=== PATIENT | male | born 1995 | race Caucasian/White ===

== ENCOUNTER 2023-05-20 19:41 | Inpatient (IN) | payer OTHER, SELFPAY ==
[2023-05-20 19:55] VITALS: BP 143/87; PULSE 85; RESP 18; TEMP 36.6; O2SAT 96
[2023-05-20] MEDS: Mirtazapine 15 MG TABLET PO (22:58)
[2023-05-20] MEDS: Insulin Glargine,Hum.rec.anlog 100 UNIT/ML 10 ML VIAL 26 UNIT SUBCUT ×2 (22:59→23:11)
[2023-05-20] MEDS: Atorvastatin Calcium 40 MG TABLET PO (22:59)
[2023-05-20] MEDS: cloNIDine HCL 0.2 MG TABLET PO (23:20)
[2023-05-20 23:29] LABS: Glucose, Whole Blood 256 mg/dL (60-115)
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
[2023-05-21 08:00] VITALS: BP 106/57; PULSE 54; RESP 16; TEMP 36.4; O2SAT 97
[2023-05-21 08:23] LABS: Estimated Average Glucose 180 mg/dL; Hemoglobin A1c % 7.9 % (<6.0)
[2023-05-21 08:25] LABS: Alanine Aminotransferase 25 U/L (0-40); Albumin Level 3.8 g/dL (3.5-5.0); Alkaline Phosphatase 123 U/L (39-117); Anion Gap 12 (12-20); Aspartate Amino Transferase 20 U/L (5-37); Bilirubin Total 0.8 mg/dL (0.0-1.0); Blood Urea Nitrogen 19 mg/dL (9-16); Calcium 8.9 mg/dL (8.4-10.2); Carbon Dioxide 26 mmol/L (22-29); Chloride 105 mmol/L (96-108); Cholesterol 121 mg/dL (<200); Creatinine Clr Calc Pharmacy 150.1; Estimated Glomerular Filt Rate > 60; Glucose Fasting 291 mg/dL (60-99); HDL Cholesterol 34 mg/dL (>40); LDL Cholesterol Calculated 75 mg/dL (<100); Potassium 4.1 mmol/L (3.3-5.1); Sodium 139 mmol/L (135-145); Total Protein 6.3 g/dL (6.5-8.0); Triglycerides 61 mg/dL (<150)
[2023-05-21 08:33] LABS: Glucose, Whole Blood 262 mg/dL (60-115)
[2023-05-21 08:39] LABS: Free T4 (Free Thyroxine) 1.03 ng/dL (0.71-1.85); Thyroid Stimulating Hormone 4.33 uIU/mL (0.32-4.0)
[2023-05-21] MEDS: Insulin Glargine,Hum.rec.anlog 100 UNIT/ML 10 ML VIAL 55 UNIT SUBCUT (09:24)
[2023-05-21] MEDS: Insulin Lispro 100 UNIT/ML 3 ML VIAL SUBCUT ×3 (09:26→20:55)
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
[2023-05-21] MEDS: Nicotine 21 MG PATCH.TD24 TRANSDERMA (11:48)
[2023-05-21] MEDS: Nicotine Polacrilex 2 MG GUM BUCCAL ×3 (11:49→20:58)
[2023-05-21 11:51] LABS: Glucose, Whole Blood 167 mg/dL (60-115)
[2023-05-21 13:21] LABS: Folate 9.9 ng/mL (> or = 4.0); Vitamin B12 459 pg/mL (200-900)
[2023-05-21 16:45] VITALS: BP 128/65; PULSE 73; RESP 16; TEMP 36.9; O2SAT 98
[2023-05-21 17:38] LABS: Glucose, Whole Blood 73 mg/dL (60-115)
[2023-05-21] MEDS: cloNIDine HCL 0.2 MG TABLET PO (20:35)
[2023-05-21] MEDS: Atorvastatin Calcium 40 MG TABLET PO (20:35)
[2023-05-21] MEDS: Mirtazapine 15 MG TABLET PO (20:35)
[2023-05-21 20:47] LABS: Glucose, Whole Blood 162 mg/dL (60-115)
[2023-05-21] MEDS: Insulin Glargine,Hum.rec.anlog 100 UNIT/ML 10 ML VIAL 26 UNIT SUBCUT (20:54)
[2023-05-22 08:24] LABS: Glucose, Whole Blood 210 mg/dL (60-115)
[2023-05-22] MEDS: Insulin Glargine,Hum.rec.anlog 100 UNIT/ML 10 ML VIAL 55 UNIT SUBCUT (08:45)
[2023-05-22] MEDS: Nicotine 21 MG PATCH.TD24 TRANSDERMA (08:46)
[2023-05-22] MEDS: Insulin Lispro 100 UNIT/ML 3 ML VIAL SUBCUT ×4 (08:50→20:33)
[2023-05-22 12:07] LABS: Glucose, Whole Blood 419 mg/dL (60-115)
--- NOTE | 2023-05-22 12:46 | HO.PSYCHPN ---
Subjective Subjective Date of Service: 05/22/23 Reason For Visit: Bipolar D/O Current Episode Depressed Severe Etc Subjective Notes: Conditional Voluntary Interim History: 27yo WM reports he has been in touch with family and friends since being here- continues to deny any problems and also denies any drug/alcohol cravings- BS was 400+ today and did take sliding scale insulin. He continues to expect dc and plan to get his insulin equipment from father. Weekday providers will likely need more collateral information to make sense of his story- and create dc plan- but currently do not see any indication to treat him with any medication change- Medication Compliance: Yes Side effects from medications: No Attending Groups: No Review of Systems Acute medical concerns: Yes ongoing diabetes Medical Review of Systems: unchanged Mental Status Exam Mental Status Exam Patient Appearance: Well Grooomed and Appropriate Patient Orientation: Person, Place, Time and Situation Level of Consciousness: Awake and Appropriate Patient Behavior: Appropriate and Cooperative Mood Description: Calm Affect Description: Calm Patient Cognition Impaired: No Ability to Follow Directions: Good Speech Pattern: Clear Memory Description: Intact Hallucinations: None Delusions: Not Present Thought Process: Intact and Goal Oriented Judgement: Fair Diagnostics Vital Signs (24Hr): Vital Signs - 24 hr 05/21/23 16:45 Temperature 98.5 F Pulse Rate 73 Respiratory Rate 16 Blood Pressure 128/65 Pulse Oximetry 98 Oxygen Delivery Method Room Air BMI result Body Mass Index 30.0 Labs 05/21/23 07:40 Labs: Laboratory Results - last 48 hr 05/20/23 05/21/23 05/21/23 23:15 07:40 08:18 Sodium 139 Potassium 4.1 Chloride 105 Carbon Dioxide 26 Anion Gap 12 BUN 19 H Creatinine 0.87 Estim Creat Clear Calc 150.1 Estimated GFR > 60 POC Glucose 256 H 262 H Fasting Glucose 291 H Estimat Average Glucose 180 Hemoglobin A1c % 7.9 H Calcium 8.9 Magnesium 2.0 Total Bilirubin 0.8 AST 20 ALT 25 Alkaline Phosphatase 123 H Total Protein 6.3 L Albumin 3.8 Triglycerides 61 Cholesterol 121 LDL Cholesterol, Calc 75 HDL Cholesterol 34 L Vitamin B12 459 Folate 9.9 TSH 4.33 H Free T4 1.03 05/21/23 05/21/23 05/21/23 11:46 17:35 20:43 Sodium Potassium Chloride Carbon Dioxide Anion Gap BUN Creatinine Estim Creat Clear Calc Estimated GFR POC Glucose 167 H 73 162 H Fasting Glucose Estimat Average Glucose Hemoglobin A1c % Calcium Magnesium Total Bilirubin AST ALT Alkaline Phosphatase Total Protein Albumin Triglycerides Cholesterol LDL Cholesterol, Calc HDL Cholesterol Vitamin B12 Folate TSH Free T4 05/22/23 05/22/23 08:20 12:03 Sodium Potassium Chloride Carbon Dioxide Anion Gap BUN Creatinine Estim Creat Clear Calc Estimated GFR POC Glucose 210 H 419 H* Fasting Glucose Estimat Average Glucose Hemoglobin A1c % Calcium Magnesium Total Bilirubin AST ALT Alkaline Phosphatase Total Protein Albumin Triglycerides Cholesterol LDL Cholesterol, Calc HDL Cholesterol Vitamin B12 Folate TSH Free T4 Medications Medications Current Medications Acetaminophen (Acetaminophen 325 Mg Tablet) 650 mg PO Q6H PRN PRN Reason: Headache/Pain Mild Scale (1-3) Al Hydroxide/Mg Hydroxide (Magnesium Hydrox/Alum Hydrox 30 Ml Oral.Susp) 30 ml PO Q6H PRN PRN Reason: Heartburn/Nausea Al Hydroxide/Mg Hydroxide (Magnesium Hydrox/Alum Hydrox 30 Ml Oral.Susp) 30 ml PO Q6H PRN PRN Reason: Heartburn/Nausea Atorvastatin Calcium (Atorvastatin Calcium 40 Mg Tablet) 40 mg PO BEDTIME [facility] Last Admin: 05/21/23 20:35 Dose: 40 mg Clonidine HCl (Clonidine Hcl 0.2 Mg Tablet) 0.2 mg PO BEDTIME [facility]; Protocol Last Admin: 05/21/23 20:35 Dose: 0.2 mg Hydroxyzine HCl (Hydroxyzine Hcl 25 Mg Tablet) 25 mg PO Q6H PRN PRN Reason: Anxiety Insulin Glargine (Insulin Glargine,Hum.Rec.Anlog 100 Unit/Ml 10 Ml Vial) 26 unit SUBCUT BEDTIME [facility] Last Admin: 05/21/23 20:54 Dose: 26 unit Insulin Glargine (Insulin Glargine,Hum.Rec.Anlog 100 Unit/Ml 10 Ml Vial) 55 unit SUBCUT DAILY [facility] Last Admin: 05/22/23 08:45 Dose: 55 unit Insulin Human Lispro (Insulin Lispro 100 Unit/Ml 3 Ml Vial) 0 unit SUBCUT QIDACHS [facility]; Protocol Last Admin: 05/22/23 08:50 Dose: 4 unit Magnesium Hydroxide (Milk Of Magnesia 30 Ml Oral.Susp) 30 ml PO DAILY PRN PRN Reason: Constipation Magnesium Hydroxide (Milk Of Magnesia 30 Ml Oral.Susp) 30 ml PO DAILY PRN PRN Reason: Constipation Mirtazapine (Mirtazapine 15 Mg Tablet) 15 mg PO BEDTIME [facility] Last Admin: 05/21/23 20:35 Dose: 15 mg Nicotine (Nicotine 21 Mg Patch.Td24) 21 mg TRANSDERMA DAILY [facility] Last Admin: 05/22/23 08:46 Dose: 21 mg Nicotine Polacrilex (Nicotine Polacrilex 2 Mg Gum) 2 mg BUCCAL Q1H PRN PRN Reason: Nicotine Cravings Last Admin: 05/21/23 20:58 Dose: 2 mg Trazodone HCl (Trazodone Hcl 50 Mg Tablet) 50 mg PO BEDTIME MRX1 PRN PRN Reason: Insomnia Allergies Allergies Allergy/AdvReac Type Severity Reaction Status Date / Time Sulfa (Sulfonamide Allergy Unknown Unknown Verified 05/20/23 15:37 Antibiotics) Assessment & Plan Assessment & Plan (1) Aggressive behavior, adult: Status: Acute Code(s): R46.89 - Other symptoms and signs involving appearance and behavior Plan seems like patient may have purposefully become aggressive to get sec 12 instead of 35 - and now seems to have no symptoms- Further exploration of actual recent substance use and what consequences will be of patient not going to mandatory detox treatment. Will need to get back pack from father to continue to live with his insulin supplies- or be furnished with new supplies- contacting his pcp might be a place to start or whomever has helped him manage his type 1 diabetes 05/22/23 no change- Guardian/Caregiver educated on: medical condition Informed Consent: understands Reason for continued inpatient stay Substantial Risk for: rapid decompensation Time Spent With Patient Time: Total time managing care of this patient today ____ minutes.
[2023-05-22] MEDS: Nicotine Polacrilex 2 MG GUM BUCCAL ×3 (12:57→20:33)
[2023-05-22 17:56] LABS: Glucose, Whole Blood 211 mg/dL (60-115)
[2023-05-22 19:25] VITALS: BP 120/71; PULSE 76; RESP 16; TEMP 36.6; O2SAT 97
[2023-05-22] MEDS: Atorvastatin Calcium 40 MG TABLET PO (20:25)
[2023-05-22] MEDS: cloNIDine HCL 0.2 MG TABLET PO (20:25)
[2023-05-22 20:26] VITALS: BP 135/73
[2023-05-22 20:32] LABS: Glucose, Whole Blood 336 mg/dL (60-115)
[2023-05-22] MEDS: Insulin Glargine,Hum.rec.anlog 100 UNIT/ML 10 ML VIAL 26 UNIT SUBCUT (20:34)
[2023-05-22] MEDS: Mirtazapine 15 MG TABLET PO (20:37)
[2023-05-23 08:00] VITALS: BP 108/57; PULSE 58; RESP 16; TEMP 36.8; O2SAT 97
[2023-05-23 08:23] LABS: Glucose, Whole Blood 105 mg/dL (60-115)
[2023-05-23] MEDS: Nicotine 21 MG PATCH.TD24 TRANSDERMA (08:40)
[2023-05-23] MEDS: Insulin Glargine,Hum.rec.anlog 100 UNIT/ML 10 ML VIAL 55 UNIT SUBCUT (08:40)
[2023-05-23 12:58] LABS: Glucose, Whole Blood 174 mg/dL (60-115)
[2023-05-23] MEDS: Nicotine Polacrilex 2 MG GUM BUCCAL ×4 (13:01→20:07)
[2023-05-23] MEDS: Insulin Lispro 100 UNIT/ML 3 ML VIAL SUBCUT ×3 (13:02→20:18)
--- NOTE | 2023-05-23 15:44 | P.PNPSI_ITS ---
Subjective Subjective Date of Service: 05/23/23 Reason For Visit: Bipolar D/O Current Episode Depressed Severe Etc Subjective Notes: 3 Day Interim History: Reviewed with Dr. Wren. Pt reports feeling good today; pt stated, I was on a Section 35 and freaked out to get out of it. I was in the same place I was last time and I didn't want to be there. I told them I was suicidal to get into the hospital . pt denies SI/HI/VH/AH. Pt reports he spoke to his pitching coach who was able to get him a bed at [facility]. Per administrator social welfare, Jodie Her, pt told pitching coach that he would not go to [facility]. Per social work, pt's father plans on going to file Section 35. Medication Compliance: Yes Side effects from medications: No Review of Systems Constitutional: Reports as per HPI Eyes: Reports as per HPI Reports as per HPI Cardiovascular: Reports as per HPI Respiratory: Reports as per HPI Gastrointestinal: Reports as per HPI Genitourinary: Reports as per HPI Musculoskeletal: Reports as per HPI Skin/Breast: Reports as per HPI Reports as per HPI Psychiatric: Reports as per HPI Endocrine: Reports as per HPI Hematologic/Lymphatic: Reports as per HPI Allergic/Immunologic: Reports as per HPI Mental Status Exam Mental Status Exam Narrative: Pt is alert and oriented; behavior is cooperative and calm; dressed in casual attire; mood is described as good ; eye contact appropriate; Speech is normal rate, volume and prosody and not pressured; thought process is organized; Thought content is on discharge; denies SI/HI/VH/AH. Diagnostics Vital Signs (24Hr): Vital Signs - 24 hr 05/22/23 19:25 05/22/23 20:26 05/23/23 08:00 Temperature 97.9 F 98.3 F Pulse Rate 76 58 Respiratory Rate 16 16 Blood Pressure 120/71 135/73 108/57 L Pulse Oximetry 97 97 Oxygen Delivery Method Room Air Room Air BMI result Body Mass Index 30.0 Labs 05/21/23 07:40 Labs: Laboratory Results - last 48 hr 05/21/23 05/21/23 05/22/23 17:35 20:43 08:20 POC Glucose 73 162 H 210 H 05/22/23 05/22/23 05/22/23 12:03 17:52 20:01 POC Glucose 419 H* 211 H 336 H 05/23/23 05/23/23 08:18 12:54 POC Glucose 105 174 H Medications Medications Current Medications Acetaminophen (Acetaminophen 325 Mg Tablet) 650 mg PO Q6H PRN PRN Reason: Headache/Pain Mild Scale (1-3) Al Hydroxide/Mg Hydroxide (Magnesium Hydrox/Alum Hydrox 30 Ml Oral.Susp) 30 ml PO Q6H PRN PRN Reason: Heartburn/Nausea Al Hydroxide/Mg Hydroxide (Magnesium Hydrox/Alum Hydrox 30 Ml Oral.Susp) 30 ml PO Q6H PRN PRN Reason: Heartburn/Nausea Atorvastatin Calcium (Atorvastatin Calcium 40 Mg Tablet) 40 mg PO BEDTIME BRIAN Last Admin: 05/22/23 20:25 Dose: 40 mg Clonidine HCl (Clonidine Hcl 0.2 Mg Tablet) 0.2 mg PO BEDTIME [facility]; Protocol Last Admin: 05/22/23 20:25 Dose: 0.2 mg Hydroxyzine HCl (Hydroxyzine Hcl 25 Mg Tablet) 25 mg PO Q6H PRN PRN Reason: Anxiety Insulin Glargine (Insulin Glargine,Hum.Rec.Anlog 100 Unit/Ml 10 Ml Vial) 26 unit SUBCUT BEDTIME BRIAN Last Admin: 05/22/23 20:34 Dose: 26 unit Insulin Glargine (Insulin Glargine,Hum.Rec.Anlog 100 Unit/Ml 10 Ml Vial) 55 unit SUBCUT DAILY [facility] Last Admin: 05/23/23 08:40 Dose: 55 unit Insulin Human Lispro (Insulin Lispro 100 Unit/Ml 3 Ml Vial) 0 unit SUBCUT QIDACHS [facility]; Protocol Last Admin: 05/23/23 13:02 Dose: 2 unit Magnesium Hydroxide (Milk Of Magnesia 30 Ml Oral.Susp) 30 ml PO DAILY PRN PRN Reason: Constipation Magnesium Hydroxide (Milk Of Magnesia 30 Ml Oral.Susp) 30 ml PO DAILY PRN PRN Reason: Constipation Mirtazapine (Mirtazapine 15 Mg Tablet) 15 mg PO BEDTIME BRIAN Last Admin: 05/22/23 20:37 Dose: 15 mg Nicotine (Nicotine 21 Mg Patch.Td24) 21 mg TRANSDERMA DAILY [facility] Last Admin: 05/23/23 08:40 Dose: 21 mg Nicotine Polacrilex (Nicotine Polacrilex 2 Mg Gum) 2 mg BUCCAL Q1H PRN PRN Reason: Nicotine Cravings Last Admin: 05/23/23 13:01 Dose: 2 mg Trazodone HCl (Trazodone Hcl 50 Mg Tablet) 50 mg PO BEDTIME MRX1 PRN PRN Reason: Insomnia Allergies Allergies Allergy/AdvReac Type Severity Reaction Status Date / Time Sulfa (Sulfonamide Allergy Unknown Unknown Verified 05/20/23 15:37 Antibiotics) Assessment & Plan Assessment & Plan (1) Aggressive behavior, adult: Status: Acute Code(s): R46.89 - Other symptoms and signs involving appearance and behavior Plan seems like patient may have purposefully become aggressive to get sec 12 instead of 35 - and now seems to have no symptoms- Further exploration of actual recent substance use and what consequences will be of patient not going to mandatory detox treatment. Will need to get back pack from father to continue to live with his insulin supplies- or be furnished with new supplies- contacting his pcp might be a place to start or whomever has helped him manage his type 1 diabetes 05/22/23 no change- 05/22: continue current tx plan. Patient educated on: diagnosis, medication risk/benefits and substance abuse Informed Consent: understands Reason for continued inpatient stay Substantial Risk for: med/psych decompensation Time Spent With Patient Time: Total time managing care of this patient today _20___ minutes.
[2023-05-23 17:49] LABS: Glucose, Whole Blood 317 mg/dL (60-115)
[2023-05-23 19:40] VITALS: BP 116/78; PULSE 68; RESP 18; TEMP 36.6; O2SAT 98
[2023-05-23 20:11] LABS: Glucose, Whole Blood 200 mg/dL (60-115)
[2023-05-23] MEDS: Mirtazapine 15 MG TABLET PO (20:15)
[2023-05-23] MEDS: cloNIDine HCL 0.2 MG TABLET PO (20:15)
[2023-05-23] MEDS: Atorvastatin Calcium 40 MG TABLET PO (20:15)
[2023-05-23] MEDS: Insulin Glargine,Hum.rec.anlog 100 UNIT/ML 10 ML VIAL 26 UNIT SUBCUT (20:17)
[2023-05-24 08:01] LABS: Glucose, Whole Blood 133 mg/dL (60-115)
[2023-05-24 08:09] VITALS: BP 105/56; PULSE 59; RESP 16; TEMP 36.7; O2SAT 98
[2023-05-24] MEDS: Nicotine 21 MG PATCH.TD24 TRANSDERMA (08:26)
[2023-05-24] MEDS: Insulin Glargine,Hum.rec.anlog 100 UNIT/ML 10 ML VIAL 55 UNIT SUBCUT (08:27)
[2023-05-24] MEDS: Nicotine Polacrilex 2 MG GUM BUCCAL (11:07)
--- NOTE | 2023-05-24 11:33 | P.DS_ITS ---
DS: Providers Provider Date of Service: 05/24/23 Date of admission: 05/20/23 19:41 Date of discharge: 05/24/23 Primary care physician: Unknown Physician Admitting clinician: Caroline Garza Attending physician on admission: Caroline Garza Consults: 05/20/23 21:52 Consult to Hospitalist Routine Comment: Consulting Provider: Hospitalist Reason For Exam: PER POLICY 05/20/23 22:19 Consult to Hospitalist Routine Comment: Consulting Provider: Hospitalist Reason For Exam: Direct admission, F/U DM meds Attending physician on discharge: Augustin Wren Discharging clinician: Key Reese DS: Diagnosis Discharge Diagnosis (1) Aggressive behavior, adult: Status: Resolved DS: Medications Discharge Medications Home Medications: Previous Rx's Medication Instructions Recorded atorvastatin 40 mg tablet 40 mg PO BEDTIME 30 days #30 tabs 05/23/23 clonidine HCl 0.2 mg tablet 0.2 mg PO BEDTIME anxiety 30 days 05/23/23 #30 tabs insulin glargine 100 unit/mL 26 unit (0.26 mL) subcut BEDTIME 05/23/23 subcutaneous solution (Lantus diabetes mellitus 30 days #7.8 mL U-100 Insulin) insulin glargine 100 unit/mL 55 unit (0.55 mL) subcut DAILY 05/23/23 subcutaneous solution (Lantus diabetes mellitus 30 days #16.5 mL U-100 Insulin) insulin lispro 100 unit/mL See Protocol subcut QIDACHS #10 mL 05/23/23 subcutaneous solution (Admelog U-100 Insulin lispro) mirtazapine 15 mg tablet 15 mg PO BEDTIME depressive 05/23/23 disorder 30 days #30 tabs Mental Status Exam Mental Status Exam Narrative: Pt is alert and oriented; behavior is cooperative and calm; dressed in casual attire; mood is described as good ; eye contact appropriate; Speech is normal rate, volume and prosody and not pressured; thought process is organized; Thought content is on discharge; denies SI/HI/VH/AH. Data Data Completed and Pending Completed studies during hospitalization [Text1]: 05/20/23 05/21/23 05/21/23 23:15 07:40 08:18 Sodium 139 Potassium 4.1 Chloride 105 Carbon Dioxide 26 Anion Gap 12 BUN 19 H Creatinine 0.87 Estim Creat Clear Calc 150.1 Estimated GFR > 60 POC Glucose 256 H 262 H Fasting Glucose 291 H Estimat Average Glucose 180 Hemoglobin A1c % 7.9 H Calcium 8.9 Magnesium 2.0 Total Bilirubin 0.8 AST 20 ALT 25 Alkaline Phosphatase 123 H Total Protein 6.3 L Albumin 3.8 Triglycerides 61 Cholesterol 121 LDL Cholesterol, Calc 75 HDL Cholesterol 34 L Vitamin B12 459 Folate 9.9 TSH 4.33 H Free T4 1.03 05/21/23 05/21/23 05/21/23 11:46 17:35 20:43 Sodium Potassium Chloride Carbon Dioxide Anion Gap BUN Creatinine Estim Creat Clear Calc Estimated GFR POC Glucose 167 H 73 162 H Fasting Glucose Estimat Average Glucose Hemoglobin A1c % Calcium Magnesium Total Bilirubin AST ALT Alkaline Phosphatase Total Protein Albumin Triglycerides Cholesterol LDL Cholesterol, Calc HDL Cholesterol Vitamin B12 Folate TSH Free T4 05/22/23 05/22/23 05/22/23 08:20 12:03 17:52 Sodium Potassium Chloride Carbon Dioxide Anion Gap BUN Creatinine Estim Creat Clear Calc Estimated GFR POC Glucose 210 H 419 H* 211 H Fasting Glucose Estimat Average Glucose Hemoglobin A1c % Calcium Magnesium Total Bilirubin AST ALT Alkaline Phosphatase Total Protein Albumin Triglycerides Cholesterol LDL Cholesterol, Calc HDL Cholesterol Vitamin B12 Folate TSH Free T4 05/22/23 05/23/23 05/23/23 20:01 08:18 12:54 Sodium Potassium Chloride Carbon Dioxide Anion Gap BUN Creatinine Estim Creat Clear Calc Estimated GFR POC Glucose 336 H 105 174 H Fasting Glucose Estimat Average Glucose Hemoglobin A1c % Calcium Magnesium Total Bilirubin AST ALT Alkaline Phosphatase Total Protein Albumin Triglycerides Cholesterol LDL Cholesterol, Calc HDL Cholesterol Vitamin B12 Folate TSH Free T4 05/23/23 05/23/23 05/24/23 17:45 20:07 07:58 Sodium Potassium Chloride Carbon Dioxide Anion Gap BUN Creatinine Estim Creat Clear Calc Estimated GFR POC Glucose 317 H 200 H 133 H Fasting Glucose Estimat Average Glucose Hemoglobin A1c % Calcium Magnesium Total Bilirubin AST ALT Alkaline Phosphatase Total Protein Albumin Triglycerides Cholesterol LDL Cholesterol, Calc HDL Cholesterol Vitamin B12 Folate TSH Free T4 DS: Summary Hospital Course Hospital Course: Admission to adult psychiatry for exacerbation of bipolar disorder, depressed, polysubstance use by history and aggressive behavior. Pt reports becoming aggressive in the ER to avoid Section 35 filed by family and change this to a Section 12. Pt signed a three day notice on admission. Reports sobriety of one year. Medications were evaluated. Pt reported he was told by his recovery coordinator he had a bed at a [facility]. He told his recovery coordinator he refused this bed offer. Pt was not committable. Team talked with family who will re-file Section [address] to continue previous plans for ongoing addiction treatment. Status at Discharge Functional status at discharge: independent ambulation Overall status at discharge: patient is progressing back to baseline Time Spent with Patient Time attestation: Total time managing care of this patient today ____ minutes. Time spent: Less than 30 minutes Discharge Plan Discharge Anticipated Discharge Date/Time: 05/24/23 12:00 Patient Disposition: Xfer Other Discharge Diagnosis: Recurrent major depression Aggressive behaviors, resolved Referrals: Physician,Charlie J [Primary Care Provider] - 1 Week Discharge Medications: New insulin lispro [Admelog U-100 Insulin lispro] 100 unit/mL Solution See Protocol subcut QIDACHS Qty: 10 0RF Protocol: Insulin Correction Scale Less than or equal to 110 ---- Give (units): 0 111 to 150 Give (units): 0 151 to 200 Give (units): 2 201 to 250 Give (units): 4 251 to 300 Give (units): 6 301 to 350 Give (units): 8 Greater than 350 Give (units): 10 Call MD if Blood Glucose > : 350 Continued clonidine HCl 0.2 mg tablet 0.2 mg PO BEDTIME 30 Days Qty: 30 0RF mirtazapine 15 mg tablet 15 mg PO BEDTIME 30 Days Qty: 30 0RF insulin glargine [Lantus U-100 Insulin] 100 unit/mL solution 55 unit subcut DAILY 30 Days Qty: 16.5 0RF insulin glargine [Lantus U-100 Insulin] 100 unit/mL solution 26 unit subcut BEDTIME 30 Days Qty: 7.8 0RF Rx Instructions: Per pharmacy and patient takes 26 units of Lantus at HS. Changed atorvastatin 40 mg tablet 40 mg PO BEDTIME 30 Days Qty: 30 0RF Discontinued insulin lispro 100 unit/mL solution Discharge Orders: Discharge Order (Routine); Ordered 05/24/23 Ordered By: Key Reese Diet: Diabetic diet Activity on Discharge: As tolerated Stand Alone Forms: Patient Portal Discharge page, Community Support Print Language: Serbian Care Plan Goals: Mood and Behavioral Stabilization Health Concerns: Mood and Behavioral Stabilization Plan of Treatment: Take medications as directed Attend scheduled appointments Assessment: Discharge on a three day notice of intent. Discharge Date/Time: 05/24/23 12:55
[2023-05-24 12:48] LABS: Glucose, Whole Blood 212 mg/dL (60-115)
[2023-05-24] MEDS: Insulin Lispro 100 UNIT/ML 3 ML VIAL SUBCUT (12:51)
== END 2023-05-24 12:55 | disposition other institution (70) | DRG 751 ==
PROVIDERS: Admitting Provider Clinical Nurse Specialist Psychiatric/Mental Health, Adult; Visit Provider Clinical Nurse Specialist Psychiatric/Mental Health, Adult
DX: F33.9 Major depressive disorder, recurrent, unspecified (principal); E10.9 Type 1 diabetes mellitus without complications; F17.210 Nicotine dependence, cigarettes, uncomplicated; Z71.6 Tobacco abuse counseling; Z79.899 Other long term (current) drug therapy
CPT/HCPCS: 36415; 80053; 80061; 82607; 82746; 82947; 83036; 83735; 84439; 84443

== ENCOUNTER → 2023-05-20 19:41 | Outpatient (BNV) | payer OTHER, SELFPAY | PROVIDERS: Admitting Provider Clinical Nurse Specialist Psychiatric/Mental Health, Adult; Visit Provider Registered Nurse | DX: F31.4 Bipolar disorder, current episode depressed, severe, without psychotic features (principal) | CPT/HCPCS: 99231; 99232; 99238 ==

== ENCOUNTER → 2023-05-20 19:41 | Outpatient (BNV) | payer OTHER, MEDICAID, SELFPAY | PROVIDERS: Admitting Provider Clinical Nurse Specialist Psychiatric/Mental Health, Adult; Visit Provider Physician Assistant | DX: Z02.2 Encounter for examination for admission to residential institution (principal) | CPT/HCPCS: 99429 ==